=== PATIENT | male | born 1940 | race Caucasian/White ===

== ENCOUNTER 2017-02-24 18:09 | Observation (INO) ==
[2017-02-24 19:04] LABS: Basophils % 0.3 % (0.0-0.8); Eosinophils # 0.1 10*3/uL (0.0-0.87); Eosinophils % 1.3 % (0.00-10.9); Hematocrit 31.5 VOL% (42.0-52.0); Hemoglobin 10.3 GM/DL (14.0-18.0); Immature Granulocytes % 0.6 %; Immature Granulocytes Absolute 0.04 #; Lymphocytes # 1.5 10*3/uL (1.4-4.0); Lymphocytes % 23.8 % (21.2-54.2); Mean Corpuscular HGB Conc 32.7 GM/DL (32-36); Mean Corpuscular Hemoglobin 28 PG (27-34); Mean Corpuscular Volume 85.4 FL (87-102); Mean Platelet Volume 11.2 FL (9.6-12.0); Monocytes # 0.5 10*3/uL (0.11-0.8); Monocytes % 7.6 % (1.7-12.7); Neutrophils # 4.2 10*3/uL (1.4-7.4); Neutrophils % 66.4 % (38.7-73.9); Platelet Count 258 T/CUMM (130-400); Red Blood Count 3.69 MC/CUMM (3.8-5.5); Red Cell Distribution Width 13.9 % (9.3-17.3); White Blood Count 6.3 T/CUMM (4-12)
[2017-02-24] MEDS ORDERED: ONDANSETRON 4 MG/2 ML VIAL IV STA (19:09)
[2017-02-24 19:37] LABS: Albumin 2.7 G/DL (3.4-5.0); Bilirubin,Total 0.5 MG/DL (0.2-1.0); Calcium 8.3 MG/DL (8.5-10.1); Osmolality,Calculated 275.5 MOS/KG (273-304); Potassium 4.1 MMOL/L (3.5-5.1); Total Protein 6.4 G/DL (6.4-8.3)
[2017-02-24 19:40] LABS: Troponin I Only 0.035 NG/ML (0.00-0.045)
[2017-02-24 19:45] LABS: Apearance,Urine CLEAR (Clear); Bilirubin,Urine Negative (Negative); Blood, Urine Negative (Negative); Glucose,Urine (UA) Negative (Negative); Ketones,Urine Negative (Negative); Nitrite,Urine Negative (Negative); Protein,Urine Negative; RBC,Urine 1 /HPF (0-4); Squamous Epithelial Cell,Urine Occasional /HPF (0-10); Urine Color Yellow (Yellow); Urine Specific Gravity 1.008 (1.001-1.035); Urine Urobilinogen < 2.0 EU/DL (0.2-1.0); WBC,Urine 2 /HPF (0-6)
[2017-02-24] MEDS ORDERED: ONDANSETRON 4 MG/2 ML VIAL ONE (19:46)
[2017-02-24] MEDS ORDERED: KETOROLAC 30 MG/1 ML VIAL ONE ×2 (19:50→21:27)
[2017-02-24] MEDS ORDERED: KETOROLAC 30 MG/1 ML VIAL IV STA (19:50)
[2017-02-24 19:57] LABS: Lactic Acid 1.1 MMOL/L (0.4-2.0)
[2017-02-24] MEDS ORDERED: ONDANSETRON 4 MG/2 ML VIAL IV PRN (23:04)
[2017-02-24] MEDS ORDERED: ACETAMINOPHEN 325 MG TABLET PO PRN (23:04)
[2017-02-24] MEDS ORDERED: DOCUSATE SODIUM 100 MG CAPSULE PO PRN (23:29)
[2017-02-25] MEDS: KETOROLAC 15 MG/1 ML VIAL IV PRN ×2 (00:12→06:50)
[2017-02-25 05:37] LABS: Basophils % 0.4 % (0.0-0.8); Eosinophils # 0.1 10*3/uL (0.0-0.87); Eosinophils % 1.5 % (0.00-10.9); Hematocrit 32.1 VOL% (42.0-52.0); Hemoglobin 10.2 GM/DL (14.0-18.0); Immature Granulocytes % 0.6 %; Immature Granulocytes Absolute 0.03 #; Lymphocytes # 1.6 10*3/uL (1.4-4.0); Lymphocytes % 34.9 % (21.2-54.2); Mean Corpuscular HGB Conc 31.8 GM/DL (32-36); Mean Corpuscular Hemoglobin 27 PG (27-34); Mean Corpuscular Volume 86.3 FL (87-102); Mean Platelet Volume 11.2 FL (9.6-12.0); Monocytes # 0.4 10*3/uL (0.11-0.8); Monocytes % 8.6 % (1.7-12.7); Neutrophils # 2.5 10*3/uL (1.4-7.4); Platelet Count 241 T/CUMM (130-400); Red Blood Count 3.72 MC/CUMM (3.8-5.5); White Blood Count 4.7 T/CUMM (4-12)
[2017-02-25 06:24] LABS: Albumin 2.4 G/DL (3.4-5.0); Bilirubin,Total 0.7 MG/DL (0.2-1.0); Calcium 8.2 MG/DL (8.5-10.1); Osmolality,Calculated 280.3 MOS/KG (273-304); Potassium 3.7 MMOL/L (3.5-5.1); Total Protein 5.9 G/DL (6.4-8.3)
[2017-02-25] MEDS: ENOXAPARIN 40 MG/0.4 ML SYRINGE SUBCUT SCH (09:10)
[2017-02-25] MEDS: POLYETHYLENE GLYCOL POWDER 17 GM PACK PO SCH (09:10)
[2017-02-25] MEDS: BICALUTAMIDE 50 MG TABLET PO SCH (09:10)
[2017-02-25] MEDS ORDERED: POLYETHYLENE GLYCOL 3350/ELECTROLYTES 4,000 ML BOTTLE PO ONE (11:48)
[2017-02-25] MEDS: oxyCODONE IR 5 MG TABLET PO PRN ×3 (12:09→23:41)
[2017-02-25] MEDS ORDERED: fentaNYL 25 MCG/HR PATCH TRANSDERM SCH (13:00)
[2017-02-26 05:26] LABS: Basophils % 0.5 % (0.0-0.8); Eosinophils % 0.5 % (0.00-10.9); Hematocrit 30.1 VOL% (42.0-52.0); Hemoglobin 9.5 GM/DL (14.0-18.0); Immature Granulocytes % 0.7 %; Immature Granulocytes Absolute 0.04 #; Lymphocytes # 1.5 10*3/uL (1.4-4.0); Lymphocytes % 26.7 % (21.2-54.2); Mean Corpuscular HGB Conc 31.6 GM/DL (32-36); Mean Corpuscular Hemoglobin 27 PG (27-34); Mean Platelet Volume 11.4 FL (9.6-12.0); Monocytes # 0.5 10*3/uL (0.11-0.8); Neutrophils # 3.6 10*3/uL (1.4-7.4); Neutrophils % 63.6 % (38.7-73.9); Platelet Count 226 T/CUMM (130-400); White Blood Count 5.6 T/CUMM (4-12)
[2017-02-26 06:03] LABS: Albumin 2.4 G/DL (3.4-5.0); Bilirubin,Total 0.6 MG/DL (0.2-1.0); Calcium 8.4 MG/DL (8.5-10.1); Osmolality,Calculated 275.7 MOS/KG (273-304); Potassium 4.4 MMOL/L (3.5-5.1)
[2017-02-26 07:37] VITALS: BP 151/97
[2017-02-26] MEDS: oxyCODONE IR 5 MG TABLET PO PRN (07:49)
[2017-02-26] MEDS: POLYETHYLENE GLYCOL POWDER 17 GM PACK PO SCH (08:51)
[2017-02-26] MEDS: ENOXAPARIN 40 MG/0.4 ML SYRINGE SUBCUT SCH (08:51)
[2017-02-26] MEDS: BICALUTAMIDE 50 MG TABLET PO SCH (08:51)
[2017-02-26] MEDS ORDERED: ONDANSETRON ODT 4 MG TABLET PO PRN (12:58)
[2017-02-26] MEDS ORDERED: fentaNYL 25 MCG/HR PATCH TRANSDERM SCH (13:00)
== END 2017-02-26 13:42 | disposition home or self-care (01) ==
LOC: N.ED 18:09 → N.EDINP 18:09 → N.5E 23:29
PROVIDERS: ADMIT Internal Medicine; ATTEND Internal Medicine

== ENCOUNTER 2017-09-05 00:04 | Inpatient (IN) ==
[2017-09-05 01:09] LABS: Basophils % 0.7 % (0.0-0.8); Eosinophils % 0.5 % (0.00-10.9); Hematocrit 30.2 VOL% (42.0-52.0); Hemoglobin 9.7 GM/DL (14.0-18.0); Immature Granulocytes Absolute 0.12 #; Lymphocytes % 32.7 % (21.2-54.2); Mean Corpuscular HGB Conc 32.1 GM/DL (32-36); Mean Corpuscular Hemoglobin 26 PG (27-34); Mean Corpuscular Volume 81.6 FL (87-102); Monocytes # 0.3 10*3/uL (0.11-0.8); Monocytes % 5.6 % (1.7-12.7); Neutrophils # 3.6 10*3/uL (1.4-7.4); Neutrophils % 58.5 % (38.7-73.9); Platelet Count 315 T/CUMM (130-400); Red Cell Distribution Width 17.2 % (9.3-17.3); White Blood Count 6.1 T/CUMM (4-12)
[2017-09-05 01:43] LABS: Apearance,Urine Slightly Hazy (Clear); Bilirubin,Urine Negative (Negative); Blood, Urine Negative (Negative); Glucose,Urine (UA) Negative (Negative); Granular Casts,Urine 11 /LPF (0-1); Hyaline Casts,Urine 12 /LPF (0-3); Ketones,Urine Negative (Negative); Mucus,Urine Occasional /LPF (Occasional); Nitrite,Urine Negative (Negative); Protein,Urine 30 MG/DL; RBC,Urine 5 /HPF (0-4); Urine Color Yellow (Yellow); Urine Specific Gravity 1.017 (1.001-1.035); WBC,Urine 7 /HPF (0-6)
[2017-09-05 01:47] LABS: Albumin 2.7 G/DL (3.4-5.0); Bilirubin,Total 0.4 MG/DL (0.2-1.0); Calcium 8.9 MG/DL (8.5-10.1); Osmolality,Calculated 273.2 MOS/KG (273-304); Potassium 4.6 MMOL/L (3.5-5.1); Total Protein 6.7 G/DL (6.4-8.3)
[2017-09-05] MEDS ORDERED: SODIUM CHLORIDE 0.9% 1,000 ML IV STA (02:10)
[2017-09-05] MEDS ORDERED: ONDANSETRON 4 MG/2 ML VIAL IV STA ×2 (02:10→03:29)
[2017-09-05] MEDS ORDERED: MORPHINE 4 MG/1 ML VIAL IV STA (03:29)
[2017-09-05] MEDS ORDERED: MORPHINE 4 MG/1 ML VIAL IV ONE (03:31)
[2017-09-05] MEDS ORDERED: ONDANSETRON 4 MG/2 ML VIAL IV ONE (03:31)
[2017-09-05] MEDS ORDERED: KETOROLAC 30 MG/1 ML VIAL IV ONE (03:59)
[2017-09-05] MEDS ORDERED: KETOROLAC 30 MG/1 ML VIAL ONE (04:00)
[2017-09-05] MEDS ORDERED: HYDROmorphone 2 MG/1 ML VIAL IV STA (05:04)
[2017-09-05] MEDS ORDERED: ONDANSETRON 4 MG/2 ML VIAL IV PRN (05:32)
[2017-09-05] MEDS ORDERED: POLYETHYLENE GLYCOL POWDER 255 GM BOTTLE PO PRN (05:38)
[2017-09-05] MEDS ORDERED: CYCLOBENZAPRINE 10 MG TABLET PO PRN (05:38)
[2017-09-05] MEDS ORDERED: fentaNYL 50 MCG/HR PATCH TRANSDERM SCH (09:00)
[2017-09-05] MEDS: ENOXAPARIN 40 MG/0.4 ML SYRINGE SUBCUT SCH (09:44)
[2017-09-05] MEDS: BICALUTAMIDE 50 MG TABLET PO SCH (09:44)
[2017-09-05] MEDS: PANTOPRAZOLE 40 MG TABLET PO SCH (09:44)
[2017-09-05] MEDS: TAMSULOSIN 0.4 MG CAPSULE PO SCH (09:44)
[2017-09-05] MEDS: CELECOXIB 200 MG CAPSULE PO SCH (09:44)
[2017-09-05] MEDS: PREGABALIN 75 MG CAPSULE PO SCH ×2 (09:48→20:14)
[2017-09-05] MEDS ORDERED: fentaNYL 25 MCG/HR PATCH TRANSDERM SCH (12:00)
[2017-09-05 13:20] LABS: Prostate Specific Antigen Diag 1280.6 NG/ML (0-4)
[2017-09-05 13:21] LABS: Testosterone < 10.0 NG/DL (241-827)
[2017-09-05] MEDS: oxyCODONE/ACETAMINOPHEN 5-325 MG TABLET PO PRN ×2 (14:20→22:33)
[2017-09-05] MEDS: HYDROmorphone 2 MG/1 ML VIAL IV PRN (20:11)
[2017-09-06] MEDS: HYDROmorphone 2 MG/1 ML VIAL IV PRN (05:18)
[2017-09-06 06:33] LABS: Basophils % 0.4 % (0.0-0.8); Eosinophils # 0.1 10*3/uL (0.0-0.87); Hematocrit 27.6 VOL% (42.0-52.0); Hemoglobin 9.1 GM/DL (14.0-18.0); Immature Granulocytes % 1.9 %; Lymphocytes # 1.5 10*3/uL (1.4-4.0); Lymphocytes % 27.9 % (21.2-54.2); Mean Corpuscular Hemoglobin 27 PG (27-34); Mean Corpuscular Volume 80.9 FL (87-102); Mean Platelet Volume 11.2 FL (9.6-12.0); Monocytes # 0.4 10*3/uL (0.11-0.8); Monocytes % 8.1 % (1.7-12.7); Neutrophils # 3.2 10*3/uL (1.4-7.4); Neutrophils % 60.7 % (38.7-73.9); Platelet Count 269 T/CUMM (130-400); Red Blood Count 3.41 MC/CUMM (3.8-5.5); Red Cell Distribution Width 17.6 % (9.3-17.3); White Blood Count 5.2 T/CUMM (4-12)
[2017-09-06] MEDS: oxyCODONE/ACETAMINOPHEN 5-325 MG TABLET PO PRN (06:47)
[2017-09-06 07:00] LABS: Calcium 8.8 MG/DL (8.5-10.1); Potassium 4.5 MMOL/L (3.5-5.1)
[2017-09-06 07:27] LABS: Alanine Aminotransferase 13 U/L (16-61); Albumin 2.4 G/DL (3.4-5.0); Alkaline Phosphatase 2271 U/L (45-117); Aspartate Amino Transferase 197 U/L (0-37); Bilirubin,Total < 0.39 MG/DL (0.2-1.0); Blood Urea Nitrogen 32 MG/DL (7-18); Calcium 8.2 MG/DL (8.5-10.1); Glucose 85 MG/DL (74-106); Potassium 4.5 MMOL/L (3.5-5.1); Sodium 136 MMOL/L (136-145); Total Protein 6.6 G/DL (6.4-8.3)
[2017-09-06] MEDS: ENOXAPARIN 40 MG/0.4 ML SYRINGE SUBCUT SCH (08:35)
[2017-09-06] MEDS: PREGABALIN 75 MG CAPSULE PO SCH (08:35)
[2017-09-06] MEDS: BICALUTAMIDE 50 MG TABLET PO SCH (08:35)
[2017-09-06] MEDS: TAMSULOSIN 0.4 MG CAPSULE PO SCH (08:35)
[2017-09-06] MEDS: PANTOPRAZOLE 40 MG TABLET PO SCH (08:35)
[2017-09-06] MEDS: CELECOXIB 200 MG CAPSULE PO SCH (08:35)
[2017-09-06 12:31] VITALS: BP 93/58
== END 2017-09-06 12:45 | disposition home health service (06) | DRG 948 ==
LOC: N.ED 00:04 → N.EDINP 05:32 → N.3E 06:06
PROVIDERS: ADMIT Internal Medicine; ATTEND Internal Medicine

== ENCOUNTER 2017-10-12 00:59 | Inpatient (IN) ==
[2017-10-12] MEDS ORDERED: ONDANSETRON 4 MG/2 ML VIAL IV STA (02:47)
[2017-10-12] MEDS ORDERED: ALUM/MAG/SIMETH/LIDO VISC 1:1 30 ML BOTTLE PO STA (02:47)
[2017-10-12] MEDS ORDERED: KETOROLAC 30 MG/1 ML VIAL IV STA (02:47)
[2017-10-12] MEDS ORDERED: MORPHINE 4 MG/1 ML VIAL IV STA (02:47)
[2017-10-12] MEDS ORDERED: SODIUM CHLORIDE 0.9% 1,000 ML IV STA (02:47)
[2017-10-12 03:42] LABS: Basophils % 0.5 % (0.0-0.8); Hematocrit 27.2 VOL% (42.0-52.0); Hemoglobin 8.3 GM/DL (14.0-18.0); Immature Granulocytes % 4.8 %; Lymphocytes # 0.8 10*3/uL (1.4-4.0); Lymphocytes % 19.8 % (21.2-54.2); Mean Corpuscular HGB Conc 30.5 GM/DL (32-36); Mean Corpuscular Hemoglobin 25 PG (27-34); Mean Corpuscular Volume 81.9 FL (87-102); Mean Platelet Volume 10.1 FL (9.6-12.0); Monocytes # 0.3 10*3/uL (0.11-0.8); Neutrophils # 2.8 10*3/uL (1.4-7.4); Neutrophils % 66.9 % (38.7-73.9); Platelet Count 217 T/CUMM (130-400); Red Blood Count 3.32 MC/CUMM (3.8-5.5); Red Cell Distribution Width 19.3 % (9.3-17.3); White Blood Count 4.1 T/CUMM (4-12)
[2017-10-12 04:16] LABS: Alanine Aminotransferase 15 U/L (16-61); Albumin 2.6 G/DL (3.4-5.0); Alkaline Phosphatase 1282 U/L (45-117); Amylase 26 U/L (25-115); Aspartate Amino Transferase 63 U/L (0-37); Bilirubin,Total < 0.39 MG/DL (0.2-1.0); Blood Urea Nitrogen 21 MG/DL (7-18); Calcium 8.8 MG/DL (8.5-10.1); Glucose 138 MG/DL (74-106); Osmolality,Calculated 283.4 MOS/KG (273-304); Potassium 4.4 MMOL/L (3.5-5.1); Sodium 140 MMOL/L (136-145); Total Protein 6.9 G/DL (6.4-8.3)
[2017-10-12 04:30] LABS: Lactic Acid 2.1 MMOL/L (0.4-2.0)
[2017-10-12] MEDS ORDERED: MEPERIDINE 25 MG/1 ML VIAL ONE (05:10)
[2017-10-12] MEDS ORDERED: MEPERIDINE 25 MG/1 ML VIAL IV STA (05:11)
[2017-10-12 05:34] LABS: Apearance,Urine CLOUDY (Clear); Bacteria,Urine Occasional /HPF (Few); Bilirubin,Urine Negative (Negative); Blood, Urine Negative (Negative); Glucose,Urine (UA) Negative (Negative); Ketones,Urine Negative (Negative); Nitrite,Urine Positive (Negative); Protein,Urine 30 MG/DL; RBC,Urine 12 /HPF (0-4); Squamous Epithelial Cell,Urine Occasional /HPF (0-10); Urine Color Yellow (Yellow); Urine Specific Gravity 1.014 (1.001-1.035); Urine Urobilinogen < 2.0 EU/DL (0.2-1.0); WBC,Urine 1031 /HPF (0-6)
[2017-10-12] MEDS ORDERED: cefTRIAXone 1,000 MG in SODIUM CHLORIDE 0.9% 100 ML IV STA (05:36)
[2017-10-12] MEDS ORDERED: LEVOFLOXACIN INJ 500 MG in PREMIX 1 EACH IV SCH (06:00)
[2017-10-12] MEDS ORDERED: ONDANSETRON 4 MG/2 ML VIAL IV PRN (08:23)
[2017-10-12] MEDS ORDERED: MORPHINE 4 MG/1 ML VIAL IV PRN (08:23)
[2017-10-12] MEDS: SODIUM CHLORIDE 0.9% 1,000 ML IV SCH ×2 (10:56→19:11)
[2017-10-12] MEDS: DOCUSATE SODIUM 100 MG CAPSULE PO SCH ×2 (10:57→20:34)
[2017-10-12] MEDS: PANTOPRAZOLE 40 MG TABLET PO SCH (10:57)
[2017-10-12] MEDS: oxyCODONE/ACETAMINOPHEN 5-325 MG TABLET PO PRN ×2 (16:53→23:01)
[2017-10-12] MEDS: PREGABALIN 75 MG CAPSULE PO SCH (23:02)
[2017-10-12] MEDS: CYCLOBENZAPRINE 10 MG TABLET PO SCH (23:02)
[2017-10-13] MEDS: SODIUM CHLORIDE 0.9% 1,000 ML IV SCH ×3 (02:57→19:56)
[2017-10-13] MEDS: ACETAMINOPHEN 325 MG TABLET PO PRN (03:28)
[2017-10-13] MEDS: oxyCODONE/ACETAMINOPHEN 5-325 MG TABLET PO PRN (05:06)
[2017-10-13 05:12] LABS: Basophils % 0.5 % (0.0-0.8); Eosinophils # 0.1 10*3/uL (0.0-0.87); Eosinophils % 1.3 % (0.00-10.9); Hematocrit 24.8 VOL% (42.0-52.0); Hemoglobin 7.7 GM/DL (14.0-18.0); Immature Granulocytes % 4.6 %; Immature Granulocytes Absolute 0.18 #; Lymphocytes # 0.9 10*3/uL (1.4-4.0); Lymphocytes % 22.7 % (21.2-54.2); Mean Corpuscular Hemoglobin 25 PG (27-34); Mean Corpuscular Volume 79.7 FL (87-102); Mean Platelet Volume 10.8 FL (9.6-12.0); Monocytes # 0.3 10*3/uL (0.11-0.8); Monocytes % 8.4 % (1.7-12.7); NRBC # 0.02 10*3/uL; Neutrophils # 2.5 10*3/uL (1.4-7.4); Neutrophils % 62.5 % (38.7-73.9); Platelet Count 179 T/CUMM (130-400); Red Blood Count 3.11 MC/CUMM (3.8-5.5); Red Cell Distribution Width 19.4 % (9.3-17.3); White Blood Count 3.9 T/CUMM (4-12)
[2017-10-13 05:58] LABS: Albumin 2.2 G/DL (3.4-5.0); Bilirubin,Total 0.5 MG/DL (0.2-1.0); Calcium 8.2 MG/DL (8.5-10.1); Osmolality,Calculated 277.5 MOS/KG (273-304); Potassium 4.5 MMOL/L (3.5-5.1); Total Protein 5.9 G/DL (6.4-8.3)
[2017-10-13] MEDS ORDERED: LEVOFLOXACIN INJ 750 MG in PREMIX 1 EACH IV SCH (06:00)
[2017-10-13] MEDS: DOCUSATE SODIUM 100 MG CAPSULE PO SCH ×2 (08:05→20:38)
[2017-10-13] MEDS: PANTOPRAZOLE 40 MG TABLET PO SCH (08:05)
[2017-10-13] MEDS: TAMSULOSIN 0.4 MG CAPSULE PO SCH (08:07)
[2017-10-13] MEDS ORDERED: PROMETHAZINE 25 MG TABLET PO PRN (10:46)
[2017-10-13] MEDS: LACTULOSE 20 GM/30 ML UDCUP PO SCH ×2 (11:21→20:38)
[2017-10-13] MEDS: BICALUTAMIDE 50 MG TABLET PO SCH (11:21)
[2017-10-13] MEDS: CELECOXIB 200 MG CAPSULE PO SCH (11:21)
[2017-10-13] MEDS: oxyCODONE IR 5 MG TABLET PO PRN ×3 (11:22→23:29)
[2017-10-13 11:30] LABS: Lactic Acid 2.8 MMOL/L (0.4-2.0)
[2017-10-13] MEDS: CYCLOBENZAPRINE 10 MG TABLET PO SCH (20:38)
[2017-10-13] MEDS: PREGABALIN 75 MG CAPSULE PO SCH (20:38)
[2017-10-14] MEDS: ACETAMINOPHEN 325 MG TABLET PO PRN ×2 (01:18→18:11)
[2017-10-14] MEDS ORDERED: ACETAMINOPHEN 500 MG TABLET PO ONE (02:40)
[2017-10-14] MEDS: cefTRIAXone 1,000 MG in SYRINGE 1 EACH IV SCH ×2 (03:05→15:32)
[2017-10-14] MEDS: SODIUM CHLORIDE 0.9% 1,000 ML IV SCH ×2 (03:08→11:07)
[2017-10-14] MEDS: LACTULOSE 20 GM/30 ML UDCUP PO SCH ×2 (09:09→21:01)
[2017-10-14] MEDS: oxyCODONE IR 5 MG TABLET PO PRN ×3 (09:09→21:42)
[2017-10-14] MEDS: PANTOPRAZOLE 40 MG TABLET PO SCH (09:09)
[2017-10-14] MEDS: CELECOXIB 200 MG CAPSULE PO SCH (09:09)
[2017-10-14] MEDS: BICALUTAMIDE 50 MG TABLET PO SCH (09:09)
[2017-10-14] MEDS: TAMSULOSIN 0.4 MG CAPSULE PO SCH (09:09)
[2017-10-14] MEDS: DOCUSATE SODIUM 100 MG CAPSULE PO SCH ×2 (09:09→21:01)
[2017-10-14] MEDS ORDERED: SODIUM CHLORIDE 0.9% 1,000 ML IV PRN (09:48)
[2017-10-14] MEDS: PREGABALIN 75 MG CAPSULE PO SCH (21:00)
[2017-10-14] MEDS: CYCLOBENZAPRINE 10 MG TABLET PO SCH (21:01)
[2017-10-15] MEDS: SODIUM CHLORIDE 0.9% 1,000 ML IV SCH ×3 (00:39→22:14)
[2017-10-15] MEDS: oxyCODONE IR 5 MG TABLET PO PRN ×3 (04:01→21:36)
[2017-10-15] MEDS: cefTRIAXone 1,000 MG in SYRINGE 1 EACH IV SCH ×2 (04:34→17:29)
[2017-10-15] MEDS: PANTOPRAZOLE 40 MG TABLET PO SCH (09:13)
[2017-10-15] MEDS: LACTULOSE 20 GM/30 ML UDCUP PO SCH ×2 (09:13→20:11)
[2017-10-15] MEDS: CELECOXIB 200 MG CAPSULE PO SCH (09:13)
[2017-10-15] MEDS: TAMSULOSIN 0.4 MG CAPSULE PO SCH (09:13)
[2017-10-15] MEDS: DOCUSATE SODIUM 100 MG CAPSULE PO SCH ×2 (09:13→20:11)
[2017-10-15] MEDS: BICALUTAMIDE 50 MG TABLET PO SCH (09:14)
[2017-10-15] MEDS ORDERED: MAGNESIUM HYDROXIDE SUSP 30 ML UDCUP PO ONE (10:28)
[2017-10-15] MEDS ORDERED: BISACODYL 5 MG TABLET PO ONE (10:29)
[2017-10-15] MEDS: POLYETHYLENE GLYCOL POWDER 17 GM PACK PO SCH (10:53)
[2017-10-15] MEDS ORDERED: LORazepam 0.5 MG TABLET PO ONE (12:57)
[2017-10-15] MEDS: CYCLOBENZAPRINE 10 MG TABLET PO SCH (20:11)
[2017-10-15] MEDS: PREGABALIN 75 MG CAPSULE PO SCH (20:11)
[2017-10-15] MEDS: ACETAMINOPHEN 325 MG TABLET PO PRN (20:12)
[2017-10-16 02:32] LABS: Basophils % 0.2 % (0.0-0.8); Eosinophils # 0.1 10*3/uL (0.0-0.87); Eosinophils % 1.9 % (0.00-10.9); Hematocrit 26.3 VOL% (42.0-52.0); Hemoglobin 8.3 GM/DL (14.0-18.0); Immature Granulocytes % 1.7 %; Immature Granulocytes Absolute 0.07 #; Lymphocytes # 0.8 10*3/uL (1.4-4.0); Lymphocytes % 18.5 % (21.2-54.2); Mean Corpuscular HGB Conc 31.6 GM/DL (32-36); Mean Corpuscular Hemoglobin 26 PG (27-34); Mean Corpuscular Volume 81.4 FL (87-102); Mean Platelet Volume 10.3 FL (9.6-12.0); Monocytes # 0.4 10*3/uL (0.11-0.8); Monocytes % 9.9 % (1.7-12.7); Neutrophils # 2.8 10*3/uL (1.4-7.4); Neutrophils % 67.8 % (38.7-73.9); Platelet Count 137 T/CUMM (130-400); Red Blood Count 3.23 MC/CUMM (3.8-5.5); Red Cell Distribution Width 19.8 % (9.3-17.3); White Blood Count 4.2 T/CUMM (4-12)
[2017-10-16 02:59] LABS: Calcium 8.3 MG/DL (8.5-10.1); Osmolality,Calculated 280.5 MOS/KG (273-304); Potassium 4.3 MMOL/L (3.5-5.1)
[2017-10-16] MEDS: oxyCODONE IR 5 MG TABLET PO PRN (03:34)
[2017-10-16] MEDS: cefTRIAXone 1,000 MG in SYRINGE 1 EACH IV SCH (03:51)
[2017-10-16] MEDS: POLYETHYLENE GLYCOL POWDER 17 GM PACK PO SCH (08:54)
[2017-10-16] MEDS: DOCUSATE SODIUM 100 MG CAPSULE PO SCH (08:55)
[2017-10-16] MEDS: TAMSULOSIN 0.4 MG CAPSULE PO SCH (08:55)
[2017-10-16] MEDS: PANTOPRAZOLE 40 MG TABLET PO SCH (08:55)
[2017-10-16] MEDS: LACTULOSE 20 GM/30 ML UDCUP PO SCH (08:55)
[2017-10-16] MEDS: CELECOXIB 200 MG CAPSULE PO SCH (08:55)
[2017-10-16] MEDS: BICALUTAMIDE 50 MG TABLET PO SCH (08:55)
[2017-10-16] MEDS ORDERED: fentaNYL 50 MCG/HR PATCH TRANSDERM SCH (09:00)
[2017-10-16] MEDS ORDERED: cefTRIAXone 1,000 MG in SYRINGE 1 EACH IV SCH (10:30)
[2017-10-16] MEDS: MAGNESIUM CITRATE 300 ML BOTTLE PO ONE ×2 (11:39→13:31)
[2017-10-16 13:02] VITALS: BP 89/65
[2017-10-16] MEDS: SODIUM CHLORIDE 0.9% 1,000 ML IV SCH (13:38)
[2017-10-16] MEDS ORDERED: POLYETHYLENE GLYCOL POWDER 17 GM PACK PO SCH (21:00)
== END 2017-10-16 16:04 | disposition home health service (06) | DRG 690 ==
LOC: N.ED 00:59 → N.EDINP 08:23 → N.4E 09:55
PROVIDERS: ADMIT Internal Medicine Geriatric Medicine; ATTEND Internal Medicine Geriatric Medicine

== ENCOUNTER 2018-08-03 13:12 | Inpatient (IN) ==
[2018-08-03] MEDS ORDERED: LEVOFLOXACIN INJ 750 MG in PREMIX 1 EACH IV STA (13:55)
[2018-08-03] MEDS ORDERED: SODIUM CHLORIDE 0.9% 1,000 ML IV STA ×2 (13:55→15:38)
[2018-08-03 14:12] LABS: Basophils % 0.1 % (0.0-0.8); Eosinophils % 0.1 % (0.00-10.9); Hematocrit 40.7 VOL% (42.0-52.0); Immature Granulocytes % 0.4 %; Immature Granulocytes Absolute 0.03 #; Lymphocytes # 0.7 10*3/uL (1.4-4.0); Lymphocytes % 9.8 % (21.2-54.2); Mean Corpuscular HGB Conc 31.9 GM/DL (32-36); Mean Corpuscular Hemoglobin 29 PG (27-34); Monocytes # 0.6 10*3/uL (0.11-0.8); Monocytes % 8.8 % (1.7-12.7); Neutrophils # 5.6 10*3/uL (1.4-7.4); Neutrophils % 80.8 % (38.7-73.9); Platelet Count 179 T/CUMM (130-400); Red Blood Count 4.52 MC/CUMM (3.8-5.5); Red Cell Distribution Width 12.6 % (9.3-17.3)
[2018-08-03 14:37] LABS: Albumin 2.9 G/DL (3.4-5.0); Bilirubin,Total 0.9 MG/DL (0.2-1.0); Calcium 8.8 MG/DL (8.5-10.1); Osmolality,Calculated 270.4 MOS/KG (273-304); Potassium 4.1 MMOL/L (3.5-5.1)
[2018-08-03] MEDS ORDERED: ONDANSETRON 4 MG/2 ML VIAL IV PRN (15:46)
[2018-08-03] MEDS ORDERED: ACETAMINOPHEN 325 MG TABLET PO PRN (15:46)
[2018-08-03] MEDS ORDERED: LACTULOSE 20 GM/30 ML UDCUP PO PRN (15:56)
[2018-08-03] MEDS ORDERED: IBUPROFEN 200 MG TABLET PO PRN (15:56)
[2018-08-03 16:19] LABS: Apearance,Urine CLOUDY (Clear); Bacteria,Urine Occasional /HPF (Few); Bilirubin,Urine Negative (Negative); Blood, Urine Moderate mg/dL (Negative); Glucose,Urine (UA) Negative (Negative); Ketones,Urine Negative (Negative); Nitrite,Urine Positive (Negative); Protein,Urine Negative; RBC,Urine 10 /HPF (0-4); Squamous Epithelial Cell,Urine Occasional /HPF (0-10); Urine Color Yellow (Yellow); Urine Specific Gravity 1.011 (1.001-1.035); Urine Urobilinogen < 2.0 EU/DL (0.2-1.0); WBC,Urine 173 /HPF (0-6)
[2018-08-03] MEDS: oxyCODONE IR 5 MG TABLET PO SCH (19:15)
[2018-08-03] MEDS: SODIUM CHLORIDE 0.9% 1,000 ML IV SCH (19:20)
[2018-08-03] MEDS: PREGABALIN 75 MG CAPSULE PO SCH (21:25)
[2018-08-03] MEDS: ENOXAPARIN 40 MG/0.4 ML SYRINGE SUBCUT SCH (21:25)
[2018-08-03] MEDS: DOCUSATE SODIUM 100 MG CAPSULE PO SCH (21:25)
[2018-08-04] MEDS: oxyCODONE IR 5 MG TABLET PO SCH ×5 (00:34→23:17)
[2018-08-04] MEDS: SODIUM CHLORIDE 0.9% 1,000 ML IV SCH ×2 (05:48→15:23)
[2018-08-04 06:09] LABS: Calcium 8.5 MG/DL (8.5-10.1); Osmolality,Calculated 272.1 MOS/KG (273-304); Potassium 3.8 MMOL/L (3.5-5.1)
[2018-08-04 06:46] LABS: Basophils % 0.2 % (0.0-0.8); Eosinophils % 0.4 % (0.00-10.9); Hematocrit 36.5 VOL% (42.0-52.0); Hemoglobin 11.7 GM/DL (14.0-18.0); Immature Granulocytes % 0.4 %; Immature Granulocytes Absolute 0.02 #; Lymphocytes # 0.8 10*3/uL (1.4-4.0); Lymphocytes % 14.5 % (21.2-54.2); Mean Corpuscular HGB Conc 32.1 GM/DL (32-36); Mean Corpuscular Hemoglobin 29 PG (27-34); Mean Corpuscular Volume 89.2 FL (87-102); Mean Platelet Volume 11.2 FL (9.6-12.0); Monocytes # 0.6 10*3/uL (0.11-0.8); Monocytes % 11.7 % (1.7-12.7); Neutrophils # 3.9 10*3/uL (1.4-7.4); Neutrophils % 72.8 % (38.7-73.9); Platelet Count 154 T/CUMM (130-400); Red Blood Count 4.09 MC/CUMM (3.8-5.5); Red Cell Distribution Width 12.6 % (9.3-17.3); White Blood Count 5.3 T/CUMM (4-12)
[2018-08-04] MEDS: MORPHINE 4 MG/1 ML VIAL IV PRN (08:58)
[2018-08-04] MEDS: DOCUSATE SODIUM 100 MG CAPSULE PO SCH ×2 (09:03→20:26)
[2018-08-04] MEDS: CELECOXIB 200 MG CAPSULE PO SCH (09:03)
[2018-08-04] MEDS: TAMSULOSIN 0.4 MG CAPSULE PO SCH (09:04)
[2018-08-04] MEDS: POLYETHYLENE GLYCOL POWDER 17 GM PACK PO SCH (09:04)
[2018-08-04] MEDS: PANTOPRAZOLE 40 MG TABLET PO SCH (09:04)
[2018-08-04] MEDS ORDERED: PHENYLEPH/MINERAL OIL/PETROLAT 57 GM TUBE TOP PRN (11:35)
[2018-08-04] MEDS ORDERED: LEVOFLOXACIN INJ 750 MG in PREMIX 1 EACH IV SCH (15:00)
[2018-08-04] MEDS: ENOXAPARIN 40 MG/0.4 ML SYRINGE SUBCUT SCH (20:25)
[2018-08-04] MEDS: PREGABALIN 75 MG CAPSULE PO SCH (20:26)
[2018-08-05] MEDS: SODIUM CHLORIDE 0.9% 1,000 ML IV SCH ×3 (00:24→08:00)
[2018-08-05] MEDS: MORPHINE 4 MG/1 ML VIAL IV PRN (02:24)
[2018-08-05 05:07] LABS: Basophils % 0.3 % (0.0-0.8); Eosinophils % 0.9 % (0.00-10.9); Hemoglobin 10.9 GM/DL (14.0-18.0); Immature Granulocytes % 0.3 %; Immature Granulocytes Absolute 0.01 #; Lymphocytes # 0.8 10*3/uL (1.4-4.0); Lymphocytes % 23.4 % (21.2-54.2); Mean Corpuscular HGB Conc 32.1 GM/DL (32-36); Mean Corpuscular Hemoglobin 29 PG (27-34); Mean Corpuscular Volume 90.7 FL (87-102); Mean Platelet Volume 12.2 FL (9.6-12.0); Monocytes # 0.5 10*3/uL (0.11-0.8); Monocytes % 13.9 % (1.7-12.7); Neutrophils # 2.1 10*3/uL (1.4-7.4); Neutrophils % 61.2 % (38.7-73.9); Platelet Count 138 T/CUMM (130-400); Red Blood Count 3.75 MC/CUMM (3.8-5.5); Red Cell Distribution Width 12.5 % (9.3-17.3); White Blood Count 3.4 T/CUMM (4-12)
[2018-08-05 05:20] LABS: Calcium 8.3 MG/DL (8.5-10.1); Osmolality,Calculated 274.8 MOS/KG (273-304); Potassium 3.9 MMOL/L (3.5-5.1)
[2018-08-05] MEDS: oxyCODONE IR 5 MG TABLET PO SCH ×2 (06:30→12:07)
[2018-08-05] MEDS: DOCUSATE SODIUM 100 MG CAPSULE PO SCH (09:37)
[2018-08-05] MEDS: CELECOXIB 200 MG CAPSULE PO SCH (09:37)
[2018-08-05] MEDS: PANTOPRAZOLE 40 MG TABLET PO SCH (09:38)
[2018-08-05] MEDS: TAMSULOSIN 0.4 MG CAPSULE PO SCH (09:38)
[2018-08-05] MEDS: POLYETHYLENE GLYCOL POWDER 17 GM PACK PO SCH (09:38)
[2018-08-05 13:00] VITALS: BP 109/62
[2018-08-05] MEDS ORDERED: LEVOFLOXACIN 750 MG TABLET PO ONE (13:00)
[2018-08-06] MEDS ORDERED: fentaNYL 50 MCG/HR PATCH TRANSDERM SCH (09:00)
== END 2018-08-05 15:06 | disposition home or self-care (01) | DRG 698 ==
LOC: N.ED 13:12 → N.EDINP 15:46 → N.3E 18:50
PROVIDERS: ADMIT Internal Medicine; ATTEND Internal Medicine